=== PATIENT | male | born 1980 | race Caucasian/White ===

== ENCOUNTER 2020-12-23 14:05 | Emergency (ER) | payer BC, OTHER ==
[2020-12-23 14:23] VITALS: BP 176/100; PULSE 65
[2020-12-23] MEDS ORDERED: Bacitracin Oint 1 GM U/D Packet TOP ONE (14:38)
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
== END 2020-12-23 14:53 | disposition home or self-care (01) ==
LOC: JP.ED 14:05
DX: T23.161A Burn of first degree of back of right hand, initial encounter (principal); I10 Essential (primary) hypertension; K21.9 Gastro-esophageal reflux disease without esophagitis; E66.9 Obesity, unspecified; Z68.41 Body mass index [BMI] 40.0-44.9, adult; Z88.1 Allergy status to other antibiotic agents; Z79.899 Other long term (current) drug therapy; W38.XXXA Explosion and rupture of other specified pressurized devices, initial encounter; Y92.009 Unspecified place in unspecified non-institutional (private) residence as the place of occurrence of the external cause
CPT/HCPCS: 16000; 99282; 99283

== ENCOUNTER 2023-08-13 18:44 | Emergency (ER) | payer OTHER, BC ==
[2023-08-13 19:16] VITALS: BP 125/77; PULSE 69
[2023-08-13 19:35] LABS: BASOPHILS ABSOLUTE AUTO 0.05 K/uL (0.00-0.10); BASOPHILS PERCENT AUTO 0.4 % (0.1-1.3); EOSINOPHILS ABSOLUTE AUTO 0.16 K/uL (0.00-0.40); EOSINOPHILS PERCENT AUTO 1.3 % (0.0-5.4); HEMATOCRIT 43.9 % (38.4-49.7); HEMOGLOBIN 15.4 g/dL (12.9-16.9); IMMATURE GRAN ABSOLUTE AUTO 0.08 K/uL (0.00-0.23); IMMATURE GRAN PERCENT AUTO 0.6 % (0.0-0.7); LYMPHOCYTES ABSOLUTE AUTO 3.95 K/uL (0.8-3.3); LYMPHOCYTES PERCENT AUTO 31.7 % (11.4-47.7); MEAN CORPUSCULAR HGB CONC 35.1 g/dL (31.6-35.5); MEAN CORPUSCULAR VOLUME 91.1 fL (81.4-99.0); MONOCYTES ABSOLUTE AUTO 0.77 K/uL (0.20-0.90); MONOCYTES PERCENT AUTO 6.2 % (3.3-12.6); NEUTROPHILS ABSOLUTE AUTO 7.47 K/uL (1.0-7.6); NEUTROPHILS PERCENT AUTO 59.8 % (40.0-78.1); PLATELET COUNT,PLT 198 K/uL (130-375); RED BLOOD CELL COUNT 4.82 M/uL (4.14-5.76); WHITE BLOOD CELL COUNT,WBC 12.5 K/uL (3.2-11.0)
[2023-08-13 19:46] LABS: CALCIUM 8.8 mg/dL (8.5-10.1); CREATININE 1.2 mg/dL (0.8-1.3); EST CRCL DRUG DOSING (CG) 77.74 mL/min; POTASSIUM,K 3.2 mmol/L (3.6-5.2)
[2023-08-13 19:48] LABS: ANION GAP 13.2 mmol/L (5.0-14.0)
[2023-08-13] MEDS ORDERED: Lidocaine 1% 10 ML MDV INJECT ONE (20:53)
[2023-08-13] MEDS ORDERED: Diphtheria,Pertussis(Acell),Tetanus Vaccine 0.5 ML Syringe IM ONE (21:01)
== END 2023-08-13 22:09 | disposition home or self-care (01) ==
LOC: JP.ED 18:44
DX: S68.114A Complete traumatic metacarpophalangeal amputation of right ring finger, initial encounter (principal); F17.210 Nicotine dependence, cigarettes, uncomplicated; E78.00 Pure hypercholesterolemia, unspecified; I10 Essential (primary) hypertension; E66.9 Obesity, unspecified; Z88.1 Allergy status to other antibiotic agents; Z68.41 Body mass index [BMI] 40.0-44.9, adult; W23.0XXA Caught, crushed, jammed, or pinched between moving objects, initial encounter
CPT/HCPCS: 36415; 73130-26-RT; 73130-RT; 80048; 85025; 90471; 90715; 99283-25; 99284